=== PATIENT | male | born 2000 | race African-American/Black ===

== ENCOUNTER 2022-02-12 20:45 | Emergency (ER) | payer MEDICAID, OTHER ==
[~2022-02-12] VITALS: Ht 182.9 cm; Wt 68.0 kg
[2022-02-12 20:45] VITALS: BP 137/78
[2022-02-13] MEDS ORDERED: LORazepam 0.5 MG TAB PO ONE
== END 2022-02-13 01:23 | disposition home or self-care (01) ==
LOC: EDBD 20:45 → ER 20:50
DX: F41.9 Anxiety disorder, unspecified (principal); F12.10 Cannabis abuse, uncomplicated
CPT/HCPCS: 93005

== ENCOUNTER 2022-02-15 19:04 | Emergency (ER) | payer MEDICAID ==
[~2022-02-15] VITALS: Ht 182.9 cm; Wt 60.4 kg
[2022-02-16] MEDS ORDERED: AZIT250T9 PO (00:58)
[2022-02-16 01:55] VITALS: BP 125/91
== END 2022-02-16 01:59 | disposition home or self-care (01) ==
LOC: ER 19:04
DX: J20.9 Acute bronchitis, unspecified (principal); Z20.822 Contact with and (suspected) exposure to COVID-19
CPT/HCPCS: 36415; 71045; 87426; 87804